=== PATIENT | male | born 1970 ===

== ENCOUNTER 2020-08-17 15:04 | Outpatient (CLI) | payer OTHER | END 2020-08-17 23:02 | disposition home or self-care (01) | LOC: INF | PROVIDERS: ATTEND Internal Medicine | DX: Z23 Encounter for immunization (principal) | CPT/HCPCS: 96372 ==

== ENCOUNTER 2020-09-08 15:58 | Outpatient (CLI) | payer OTHER | END 2020-09-08 19:59 | disposition home or self-care (01) | LOC: INF 15:58 | PROVIDERS: ATTEND Internal Medicine | DX: Z23 Encounter for immunization (principal) | CPT/HCPCS: 96372 ==